=== PATIENT | male | born 1975 | race Caucasian/White ===

== ENCOUNTER 2021-04-09 07:40 | Emergency (ER) | payer MEDICAID, MEDICARE, OTHER ==
[~2021-04-09] VITALS: Ht 180.3 cm; Wt 99.8 kg
[2021-04-09 07:45] VITALS: BP 131/72
[2021-04-09] MEDS ORDERED: KETOROLAC TROMETH 60MG/2ML VIAL IM ONE (08:30)
== END 2021-04-09 09:34 | disposition home or self-care (01) ==
LOC: ER 07:40 → EDBD 07:40 → ER 09:34
DX: S42.001A Fracture of unspecified part of right clavicle, initial encounter for closed fracture (principal); V49.9XXA Car occupant (driver) (passenger) injured in unspecified traffic accident, initial encounter; Y93.89 Activity, other specified; Y92.89 Other specified places as the place of occurrence of the external cause; Y99.8 Other external cause status
CPT/HCPCS: 29105; 73000; 73030; 96372; 99284; J1885